=== PATIENT | male | born 1960 | race African-American/Black ===

== ENCOUNTER 2018-07-01 03:03 | Inpatient (IN) | payer MEDICARE ==
[2018-07-01] MEDS ORDERED: Ketorolac Tromethamine 30 MG/ML VIAL ONE (04:43)
[2018-07-01 05:22] LABS: Hemoglobin 15.8 g/dL (14.0-18.0); Mean Corpuscular HGB CONC 33.6 g/dL (32.0-36.0); Mean Corpuscular Hemoglobin 30.1 pg (27.0-31.0); Mean Corpuscular Volume 89.4 fL (78.0-98.0); Mean Platelet Volume 7.9 fL (7.4-10.4); Platelet Count 89 thou/uL (130-400); RBC Distribution Width 13.3 % (11.5-14.5); Red Blood Cell (RBC) Count 5.24 mill/uL (4.70-6.10); White Blood Cell (WBC) Count 6.2 thou/uL (4.8-10.8)
[2018-07-01 05:29] LABS: ALT (SGPT) 7 U/L (8-55); AST (SGOT) 11 U/L (5-34); Albumin 3.2 g/dL (3.5-5.0); Alkaline Phosphatase 72 U/L (40-150); Anion Gap 9 mmol/L (10-20); BUN (Urea Nitrogen) 14 mg/dL (8.4-25.7); Bilirubin, Total 0.6 mg/dL (0.2-1.2); Calc. Creatinine Clearance 0 mL/min (70-130); Calcium 8.6 mg/dL (7.8-10.44); Carbon Dioxide 28 mmol/L (22-29); Chloride 108 mmol/L (98-107); Estimated GFR-MDRD 71; Globulin 1.6 g/dL (2.4-3.5); Glucose 94 mg/dL (70-105); Potassium 3.8 mmol/L (3.5-5.1); Protein, Total 4.8 g/dL (6.0-8.3); Sodium 141 mmol/L (136-145)
[2018-07-01] MEDS ORDERED: Enoxaparin Sodium 80 MG/0.8 ML SYRINGE ONE (05:43)
[2018-07-01 05:46] LABS: Lymphocytes 28 % (21-51); MDiff Complete? YES; Monocytes 9 % (0-10); Neutrophil 63 % (42-75); PLT Morphology Comment Appears Decreased; RBC Morphology Normal
--- NOTE | 2018-07-01 06:19 | PDOC.FPRHP ---
- History of Present Illness Chief Complaint: Right leg pain History of Present Illness: 58 yo M with PMH of DVT here for right leg pain, rated 7/10 for the last 3 days , worsening. Pt said pain was similar to when he had a DVT in 2016. At that time , he was placed on xarelto and took it for 9 months. Associated symptoms now are chest pain, pleuritic chest pain, productive cough. In the ED, U/s showed near occlusive right popliteal vein and proximal mid- posterior tibial vein. CTA showed PE in RLL and pulmonary artery extending into multiple segmental branches with probable segmental/subsegmental PE in LLL and RML. He received lovenox and toradol. - History PMHx: DVT in 2016, asthma, possible COPD PSHx: eye surgery, carpal tunnel (left), scope left knee FHx: blood clots in mom and niece, HTN in sister, DM in sister, denied cancer or heart problems Social: 45 pack year smoking hx, alcohol abuse (drinks as much as he can afford , example drank 6 pack at a time, then goes 1-2 wks til he can get more); admits to marijuana and smoking crack cocaine. Currently homeless, had falling out with . Wishes to go to rehab and "get my life straightened up." New granddaughter born last week. - Review of Systems General: denies: fever/chills Eyes: denies: eye pain, vision changes ENT: denies: nasal congestion, rhinorrhea Respiratory: reports: cough. denies: congestion, shortness of breath Cardiovascular: reports: chest pain. denies: palpitation Gastrointestinal: reports: diarrhea. denies: nausea, vomiting, constipation, abdominal pain, GI bleeding Genitourinary: denies: dysuria, discharge Skin: denies: rashes Musculoskeletal: reports: pain Neurological: reports: numbness (on right calf) - Vital signs BP 120/76, P 78, R 18, T 98.6 - Physical Exam Constitutional: NAD, awake, alert and oriented HEENT: normocephalic and atraumatic, PERRLA (pupils pinpoint but reactive), MMM Neck: supple, other (LAD+) Heart: RRR, normal S1/S2, no murmurs/rubs/gallops, pulses present, no edema Lungs: CTAB, no respiratory distress, good air movement, no rales/rhonchi Abdomen: soft, non-tender, bowel sounds present, no masses/distention Musculoskeletal: normal structure, normal tone, ROM grossly normal Neurological: CN II-XII intact Skin: good turgor, capillary refill <2 seconds Psychiatric: normal mood and affect, good judgment and insight, intact recent and remote memory FMR H&P: Results - Labs Result Diagrams: 07/01/18 05:04 07/01/18 05:04 Lab results: WBC 6.2 thou/uL (4.8-10.8) 07/01/18 05:04 Hgb 15.8 g/dL (14.0-18.0) 07/01/18 05:04 Hct 46.9 % (42.0-52.0) 07/01/18 05:04 MCV 89.4 fL (78.0-98.0) 07/01/18 05:04 Plt Count 89 thou/uL (130-400) L 07/01/18 05:04 Sodium 141 mmol/L (136-145) 07/01/18 05:04 Potassium 3.8 mmol/L (3.5-5.1) 07/01/18 05:04 Chloride 108 mmol/L (98-107) H 07/01/18 05:04 Carbon Dioxide 28 mmol/L (22-29) 07/01/18 05:04 BUN 14 mg/dL (8.4-25.7) 07/01/18 05:04 Creatinine 1.26 mg/dL (0.6-1.3) 07/01/18 05:04 Glucose 94 mg/dL (70-105) 07/01/18 05:04 Calcium 8.6 mg/dL (7.8-10.44) 07/01/18 05:04 Total Bilirubin 0.6 mg/dL (0.2-1.2) 07/01/18 05:04 AST 11 U/L (5-34) 07/01/18 05:04 ALT 7 U/L (8-55) L 07/01/18 05:04 Alkaline Phosphatase 72 U/L (40-150) 07/01/18 05:04 Serum Total Protein 4.8 g/dL (6.0-8.3) L 07/01/18 05:04 Albumin 3.2 g/dL (3.5-5.0) L 07/01/18 05:04 FMR H&P: A/P - Problem List (1) Pulmonary embolism Current Visit: Yes Status: Acute Code(s): I26.99 - OTHER PULMONARY EMBOLISM WITHOUT ACUTE COR PULMONALE (2) DVT (deep venous thrombosis) Current Visit: Yes Status: Acute Code(s): I82.409 - ACUTE EMBOLISM AND THOMBOS UNSP DEEP VN UNSP LOWER EXTREMITY (3) Drug abuse and dependence Current Visit: Yes Status: Acute Code(s): F19.20 - OTHER PSYCHOACTIVE SUBSTANCE DEPENDENCE, UNCOMPLICATED (4) Cocaine abuse Current Visit: Yes Status: Acute Code(s): F14.10 - COCAINE ABUSE, UNCOMPLICATED (5) Marijuana abuse Current Visit: Yes Status: Acute Code(s): F12.10 - CANNABIS ABUSE, UNCOMPLICATED (6) Tobacco abuse Current Visit: Yes Status: Acute Code(s): Z72.0 - TOBACCO USE (7) Homeless Current Visit: Yes Status: Acute Code(s): Z59.0 - HOMELESSNESS - Plan 58 yo AAF with PMH of DVT with PE and DVT. PE/DVT -VSS -US: near occlusive rt popliteal vein and proximal mid-posterior tibial vein -CTA: PE in RLL pulmonary artery extending into multiple segmental branches with probable segmental/subsegmental PE in LLL and RML -EKG and Cardiac enzymes ordered -Received lovenox in ER -Start on xarelto, admit to tele obs -Pain control: tramadol and tylenol -Thrombotic panel Drug abuse -Pt admits to alcohol, tobacco, marijuana and cocaine abuse -Consult case management for rehab (pt is interested in "getting life back together") -RPR, Hep C, Hep B, and HIV pending -Nicotine patches -UDS Homeless -Case management consult Code status: Full Code Lubna Parker, PGY-1 FMR H&P: Upper Level - Pertinent history 58M with 3 day of leg swelling. At ER, found to have DVT by doppler in right leg. Follow up CTA found PE. He is symptomatic with SOB, chest pain, leg pain. Vitals were found to be stable and patient is on room air without hypoxia. He has history of provoked DVT after knee surgery. He took xarelto for 9 months , afterwhcih DVT resolved. No studies were done at that time due to DVT being provoked. - Pertinent findings Pertinent PE Ext: Right leg with tenderness on palpation, mild swelling. - Plan Date/Time: 07/01/18617 I, [Dung Resendez], have evaluated this patient and agree with findings/plan as outlined by physician general internal medicine resident. Pertinent changes/additions are listed here. 1. PE: Patient has insurance. Start on Xarelto. Consult CM for xarelto financial assistance. Patient stable at this time with PE, no sign of decompensation at this time. 2. DVT: Unprovoked in a patient who is ambulatory. Coag studies today. 3. Tobacco and drug abuse: Education provided to patient. CM consult for community resource. Attending Addendum - Attending Addendum Date/Time: 07/01/18629 I personally evaluated the patient and discussed the management with Dr. Parker/ Dipti. I agree with the History, Examination, Assessment and Plan documented above with any addition or exceptions noted below. Patient with history of LLE DVT presenting with 3-4 days of R calf and posterior knee pain that has been progressive. Denies any recent injury to the region. Reports no redness or swelling to the area. Was on Xarelto for 6 months for previous DVT. Denies fevers, chills, weight loss, night sweats. He reports some mild substernal chest pain with no radiation when taking a deep breath, but denies shortness of breath or palpitations. On exam, overall normal. Vitals stable, BP normal and non hypoxic on room air. RRR, CTAB. Extremity exam shows 1 + pitting edema chronic of LLE, moderate TTP RLE, no palpable cord noted. Equal pulses. Prelim imaging report shows RLE popliteal occlusive thrombus, and CTA shows scattered PE, though imaging was suboptimal. Patient will be admitted to telemetry for: 1. Acute PE without instability- patient has been given Lovenox and will start on Xarelto and consult CM. Will discuss images with radiology to see if clot burden is as severe as on initial report. If so, will need Echo and workup for pro-thrombotic disease. Continue tele monitoring. 2. Hx DVT- thrombotic panel to see if he has more of a provoked clot. 3. Drug abuse- UDS and CM for possible counselling and outpatient rehab services.
[2018-07-01] MEDS ORDERED: Acetaminophen 500 MG TAB PO PRN (08:51)
[2018-07-01] MEDS ORDERED: Ondansetron HCl/PF 4 MG/2 ML Vial IVP PRN (08:51)
[2018-07-01] MEDS ORDERED: Acetaminophen 325 MG TAB PO PRN (08:52)
[2018-07-01] MEDS ORDERED: Ondansetron ODT 4 MG TAB PO PRN (08:52)
[2018-07-01 08:56] VITALS: BMI 25.6
--- NOTE | 2018-07-01 08:57 | ULT ---
PRELIMINARY REPORT/[facility]/EMERGENTY AFTER-HOURS PROCEDURE US Duplex Right Lower Extremity Veins EXAM DATE/TIME: Exam ordered 07/01/2018 4:07 AM CLINICAL HISTORY: 58 years old, male; Pain; Leg, lower; Right; Patient HX: Rle pain x 3 days. ; Additional info: HX: Ll e dvt TECHNIQUE: Real-time duplex ultrasound scan of the right lower extremity veins integrating B-mode two dimensiona l vascular structure, Doppler spectral analysis, color flow Doppler imaging and compression. COMPARISON: No relevant prior studies available. FINDINGS: Deep veins: Near occlusive thrombosis of the right popliteal vein and proximal-mid posterior tibial v ein. Remaining deep veins of the right lower extremity are patent. Superficial veins: No thrombus in the visualized great saphenous vein. Soft tissues: No acute findings. No popliteal cyst. IMPRESSION: Near occlusive thrombosis of the right popliteal vein and proximal-mid posterior tibial vein. Thank you for allowing us to participate in the care of your patient. Dictated and Authenticated by: Go Torres MD 07/01/2018 4:42 AM Central Time ([place] & [place]) FINAL REPORT VENOUS DOPPLER ULTRASOUND OF THE RIGHT LOWER EXTREMITY: Date: 07/01/18 FINDINGS/IMPRESSION: I agree with the preliminary report given by Lorraine. POS: [facility]
--- NOTE | 2018-07-01 09:02 | CT ---
PRELIMINARY REPORT/[facility]/EMERGENTY AFTER-HOURS PROCEDURE Addendum created by Go Torres MD on 07/01/2018 5:29 AM Central Time ([place] & [place]) Findings discussed with JEET ROBNI MD at time of interpretation. Initial Report created on 07/01/2018 5:20 AM Central Time ([place] & [place]) CT Angiography Chest With Intravenous Contrast EXAM DATE/TIME: 07/01/2018 4:50 AM CLINICAL HISTORY: 58 years old, male; Signs and symptoms; Shortness of breath; Patient HX: Eval for possible pe; PT C/O SOB; M58 presents with burning r leg pain x3 days. PT reports HX of dvts in l leg. PT reports he has been off of blood thinners "for a while". PT denies any known injury; Additional info: HX: Lle dvt TECHNIQUE: Axial computed tomographic angiography images of the chest with intravenous contrast using CT angiogr aphy protocol. MIP reconstructed images were created and reviewed. COMPARISON: No relevant prior studies available. FINDINGS: Pulmonary arteries: Study limited by flow artifact and suboptimal contrast bolus; however, there is p ulmonary embolus in the right lower lobe pulmonary artery extending into multiple segmental branches with probable segmental/subsegmental PE in the left lower lobe and right middle lobe as well. Aorta: Normal. No aortic aneurysm. No aortic dissection. Lungs: Normal. No consolidation. No masses. Pleural space: Normal. No pneumothorax. No pleural effusion. Heart: Normal. No cardiomegaly. No pericardial effusion. No evidence of right heart strain. Mediastinum: Esophagus is unremarkable. Bones/joints: Unremarkable. No acute fracture. Soft tissues: Gynecomastia. Lymph nodes: Unremarkable. No enlarged lymph nodes. IMPRESSION: Study limited by flow artifact and suboptimal contrast bolus; however, there is pulmonary embolus in the right lower lobe pulmonary artery extending into multiple segmental branches with probable segmen brayan/subsegmental PE in the left lower lobe and right middle lobe as well. Thank you for allowing us to participate in the care of your patient. Dictated and Authenticated by: Go Torres MD 07/01/2018 5:20 AM Central Time ([place] & [place]) FINAL REPORT EMERGENCY AFTER HOURS CT ANGIOGRAM THORAX WITH IV CONTRAST AND 3D RECONSTRUCTIONS: Date: 07/01/18 HISTORY: Burning right lower extremity pain for 3 days. History of deep venous thrombosis in left leg. IMPRESSION: 1. Extensive pulmonary emboli with multiple pulmonary emboli seen throughout the bilateral lower lob e segmental and subsegmental pulmonary arteries, much greater in the right lower lobe. However, there are also filling defects related to pulmonary emboli involving segmental and subsegmental right uppe r lobe and right middle lobe pulmonary arteries. 2. Vascular calcifications in the coronary arteries and thoracic aorta. Thoracic aorta is normal in caliber without evidence of an aortic dissection. 3. No pleural effusion is present. There is minimal dependent bibasilar atelectasis. Findings are in agreement with the preliminary report by Lorraine. POS: [facility]
[2018-07-01] MEDS: Nicotine 21 MG PATCH TD SCH (10:18)
[2018-07-01] MEDS: Rivaroxaban 15 MG TAB PO SCH ×2 (10:18→20:41)
[2018-07-01 10:35] LABS: CKMB 1.3 ng/mL (0-6.6); Troponin I Less than 0.010 ng/mL (< 0.028)
[2018-07-01 10:44] LABS: INR-International Normal Ratio 1.1; PTT 38.8 SEC (22.9-36.1); Prothrombin Time 14.3 SEC (12.0-14.7)
[2018-07-01 10:49] LABS: Syphilis Antibody Nonreactive (Nonreactive); Syphilis Antibody Index 0.03 S/CO (<1.00 Non-Reactive)
[2018-07-01 10:50] LABS: HBSAB Concentration 0.19 mIU/mL; HBSAg Index 0.17 S/CO (0-0.99); HIV (1/2) Antibody/Antigen Non-Reactive (NonReactive); HIV 1/2 INDEX 0.18 S/CO (<1.00); Hep B Surf AB Non-Reactive (NonReactive); Hep B Surf Ag Non-Reactive S/CO (NonReactive); Hep C IgG Ab Non-Reactive (NonReactive); Hep C Index 0.08 S/CO (0-0.79)
[2018-07-01 10:52] LABS: D-Dimer Test 4.31 *mcg/mL (0.27-0.43)
[2018-07-01 13:12] LABS: HEX PHOS LA Tube 1 69.2 SEC; HEX PHOS LA Tube 2 65.3 SEC; Hexagonal Phospholipid Neut 3.9 SEC (0-8.0)
[2018-07-01] MEDS ORDERED: ISOVUE-370 76%-LOCM 1 ML ONE (14:44)
[2018-07-01] MEDS: traMADol HCl 50 MG TAB PO PRN ×2 (15:06→21:10)
[2018-07-02 04:58] LABS: #Eosinphils 0.1 thou/uL (0.0-0.7); #Lymphocytes 1.7 thou/uL (1.20-3.40); #Monocytes 0.5 thou/uL (0.11-0.59); #Neutrophils 1.4 thou/uL (1.40-6.50); %Basophils 0.8 % (0.0-1.0); %Eosinophils 1.7 % (0.0-10.0); %Lymphocytes 46.5 % (21.0-51.0); %Monocytes 13.8 % (0.0-10.0); %Neutrophils 37.1 % (42.0-75.0); Mean Corpuscular HGB CONC 33.4 g/dL (32.0-36.0); Mean Corpuscular Hemoglobin 30.3 pg (27.0-31.0); Mean Corpuscular Volume 90.6 fL (78.0-98.0); Mean Platelet Volume 7.8 fL (7.4-10.4); Platelet Count 84 thou/uL (130-400); RBC Distribution Width 13.4 % (11.5-14.5); Red Blood Cell (RBC) Count 4.94 mill/uL (4.70-6.10); White Blood Cell (WBC) Count 3.7 thou/uL (4.8-10.8)
[2018-07-02 05:24] LABS: Anion Gap 7 mmol/L (10-20); BUN (Urea Nitrogen) 13 mg/dL (8.4-25.7); Calc. Creatinine Clearance 119 mL/min (70-130); Calcium 8.1 mg/dL (7.8-10.44); Carbon Dioxide 27 mmol/L (22-29); Chloride 108 mmol/L (98-107); Estimated GFR-MDRD Greater than 90; Glucose 91 mg/dL (70-105); Sodium 138 mmol/L (136-145)
[2018-07-02 06:08] LABS: Amphetamine Not Detected (NotDetected); Barbiturates Screen Not Detected (NotDetected); Benzodiazepine Screen Not Detected (NotDetected); Cocaine Metabolite Screen Detected (NotDetected); Medtox Control Line Valid? VALID (VALID); Medtox Reader # READER 4; Methadone Not Detected (NotDetected); Methamphetamine Not Detected (NotDetected); Opiate Screen Not Detected (NotDetected); Oxycodone Screen Not Detected (NotDetected); Phencyclidine (PCP) Not Detected (NotDetected); THC/Cannabinoid Screen Detected (NotDetected); Tricyclic Screen Not Detected (NotDetected)
--- NOTE | 2018-07-02 06:11 | PDOC.FM ---
- Subjective Subjective: No acute events overnight. Endorses mild pain 4-5/10 in RLE but improved from yesterday and with tramadol. - Objective Vital Signs & Weight: Vital Signs (12 hours) Temp Pulse Resp BP Pulse Ox 07/01/18 20:38 98.1 F 94 16 128/80 97 Weight Weight 88.11 kg I&O: 06/30/18 07/01/18 07/02/18 06:59 06:59 06:59 Intake Total 1140 Balance 1140 Result Diagrams: 07/02/18 04:32 07/02/18 04:32 <Claudia Rudolph - Last Filed: 07/02/18 14:28> - Objective Vital Signs & Weight: Vital Signs (12 hours) Temp Pulse Resp BP Pulse Ox 07/03/18 07:40 98.1 F 58 L 16 155/89 H 98 07/03/18 04:00 98.4 F 54 L 15 134/75 97 Weight Weight 91.58 kg I&O: 07/02/18 07/03/18 07/04/18 06:59 06:59 06:59 Intake Total 2040 1557 Output Total 275 950 Balance 1765 607 Result Diagrams: 07/03/18 04:40 07/03/18 04:40 <Montez Charlton - Last Filed: 07/03/18 12:35> Phys Exam - Physical Examination Constitutional: NAD Respiratory: no wheezing, no rales, no rhonchi, clear to auscultation bilateral Gastrointestinal: soft, non-tender Psychiatric: A&O x 3 Deviation from normal: RLE: no palpable cord, no erythema, no edema, mild tenderness to palpation -: pedal pulses present <Claudia Rudolph - Last Filed: 07/02/18 14:28> Dx/Plan (1) Cocaine abuse Code(s): F14.10 - COCAINE ABUSE, UNCOMPLICATED Status: Acute (2) DVT (deep venous thrombosis) Code(s): I82.409 - ACUTE EMBOLISM AND THOMBOS UNSP DEEP VN UNSP LOWER EXTREMITY Status: Acute (3) Drug abuse and dependence Code(s): F19.20 - OTHER PSYCHOACTIVE SUBSTANCE DEPENDENCE, UNCOMPLICATED Status: Acute (4) Homeless Code(s): Z59.0 - HOMELESSNESS Status: Acute (5) Marijuana abuse Code(s): F12.10 - CANNABIS ABUSE, UNCOMPLICATED Status: Acute (6) Pulmonary embolism Code(s): I26.99 - OTHER PULMONARY EMBOLISM WITHOUT ACUTE COR PULMONALE Status : Acute (7) Tobacco abuse Code(s): Z72.0 - TOBACCO USE Status: Acute - Plan Plan: 58 yo M with h/o of L provoked DVT (2/2 to knee surgery) with R unprovoked DVT 1. Unprovoked DVT of RLE -Currently stable, pain improved with Toradol -On Xarelto for anticoagulation -Per sister, patient's insurance covers his Xarelto, plan to continue anticoagulation for the next 6 months -Able to ambulate 2. PE -Currently vitally stable, saturation above 92% on room air 3. Drug abuse: -Hep B, HCV, HiV, Sphilis panels all negative -Per prior note, desires to "get more help" so have consulted case management for further mgmt on this 4. Tobacco abuse: -Currently on nicotine patch -Plan to discuss cessation with patient if interested 5. Thrombocytopenia, likely 2/2 Xarelto -No prior visits to confirm baseline -Patient with no active bleeding, purpura-[facility] Dispo: Medically stable, will be discharged tomorrow since sister lives out of town. She will pick him up tomorrow. Discussed with Dr. Charlton who agrees with above plan <Claudia Rudolph - Last Filed: 07/02/18 14:28> Attending Addendum - Attending Addendum Date/Time: 07/03/18 1234 I personally evaluated the patient and discussed the management with Dr. Rudolph yesterday on 07/02/18. I agree with the History, Examination, Assessment and Plan documented above with any addition or exceptions noted below. <Montez Charlton - Last Filed: 07/03/18 12:35>
[2018-07-02] MEDS: Rivaroxaban 15 MG TAB PO SCH ×2 (10:04→20:47)
[2018-07-02] MEDS: Nicotine 21 MG PATCH TD SCH (10:05)
[2018-07-02] MEDS: traMADol HCl 50 MG TAB PO PRN ×2 (10:07→16:08)
--- NOTE | 2018-07-02 14:33 | PDOC.EVN ---
Event Note - Event Note Event Note: Patient's sister (Ms. Pinto) called expression concern for quick turn around time for discharge and frustration with miscommunication. She stated she wants to be notified first and to be contacted for all changes. It was previously communicated to her patient would be discharged Wednesday and so after she was notified he could be discharged today she was upset since she lives 3 hours away and would not be able to come in time. After 3 separate phone conversations between her, myself and Dr. Charlton, we apologized for the miscommunication and decided that we would keep patient until tomorrow (07/03) and sister would be picking him up. Questions and concerns were invited, discussed and addressed.
[2018-07-02 16:20] LABS: EliA APS New Method **** NEW METHOD ****
[2018-07-03 05:13] LABS: #Eosinphils 0.1 thou/uL (0.0-0.7); #Lymphocytes 1.7 thou/uL (1.20-3.40); #Monocytes 0.6 thou/uL (0.11-0.59); #Neutrophils 1.8 thou/uL (1.40-6.50); %Basophils 1.1 % (0.0-1.0); %Lymphocytes 39.7 % (21.0-51.0); %Monocytes 14.3 % (0.0-10.0); Hemoglobin 15.3 g/dL (14.0-18.0); Mean Corpuscular HGB CONC 33.8 g/dL (32.0-36.0); Mean Corpuscular Hemoglobin 30.3 pg (27.0-31.0); Mean Corpuscular Volume 89.8 fL (78.0-98.0); Platelet Count 96 thou/uL (130-400); RBC Distribution Width 13.3 % (11.5-14.5); Red Blood Cell (RBC) Count 5.03 mill/uL (4.70-6.10); White Blood Cell (WBC) Count 4.3 thou/uL (4.8-10.8)
[2018-07-03 05:21] LABS: Anion Gap 11 mmol/L (10-20); BUN (Urea Nitrogen) 8 mg/dL (8.4-25.7); Calc. Creatinine Clearance 136 mL/min (70-130); Calcium 8.4 mg/dL (7.8-10.44); Carbon Dioxide 25 mmol/L (22-29); Chloride 107 mmol/L (98-107); Estimated GFR-MDRD Greater than 90; Glucose 84 mg/dL (70-105); Sodium 139 mmol/L (136-145)
--- NOTE | 2018-07-03 05:49 | PDOC.FM ---
- Subjective Subjective: No acute events overnight. Still reports mild pain in RLE worse with walking but improved from yesterday. - Objective MAR Reviewed: Yes Vital Signs & Weight: Vital Signs (12 hours) Temp Pulse Resp BP Pulse Ox 07/02/18 20:00 98.3 F 68 15 142/89 H 97 Weight Weight 89.358 kg I&O: 07/01/18 07/02/18 07/03/18 06:59 06:59 06:59 Intake Total 2040 1197 Output Total 275 450 Balance 1765 747 Result Diagrams: 07/03/18 04:40 07/03/18 04:40 <Claudia Rudolph - Last Filed: 07/03/18 20:54> - Objective Vital Signs & Weight: Weight Weight 91.58 kg I&O: 07/03/18 07/04/18 07/05/18 06:59 06:59 06:59 Intake Total 1557 Output Total 950 Balance 607 Result Diagrams: 07/03/18 04:40 07/03/18 04:40 <Montez Charlton - Last Filed: 07/04/18 14:07> Phys Exam - Physical Examination Constitutional: NAD Respiratory: no wheezing, no rales, no rhonchi, clear to auscultation bilateral Cardiovascular: RRR, no significant murmur -: RLE: no swelling, no erythema, mildly tender to palpation <Claudia Rudolph - Last Filed: 07/03/18 20:54> Dx/Plan (1) Cocaine abuse Code(s): F14.10 - COCAINE ABUSE, UNCOMPLICATED Status: Acute (2) DVT (deep venous thrombosis) Code(s): I82.409 - ACUTE EMBOLISM AND THOMBOS UNSP DEEP VN UNSP LOWER EXTREMITY Status: Acute (3) Drug abuse and dependence Code(s): F19.20 - OTHER PSYCHOACTIVE SUBSTANCE DEPENDENCE, UNCOMPLICATED Status: Acute (4) Homeless Code(s): Z59.0 - HOMELESSNESS Status: Acute (5) Marijuana abuse Code(s): F12.10 - CANNABIS ABUSE, UNCOMPLICATED Status: Acute (6) Pulmonary embolism Code(s): I26.99 - OTHER PULMONARY EMBOLISM WITHOUT ACUTE COR PULMONALE Status : Acute (7) Tobacco abuse Code(s): Z72.0 - TOBACCO USE Status: Acute - Plan Plan: 58 yo M with h/o of L provoked DVT (2/2 to knee surgery) with R unprovoked DVT 1. Unprovoked DVT of RLE -Currently stable, pain improved with Toradol -On Xarelto for anticoagulation -Able to ambulate -Coag panel pending, outpt. colonoscopy -IgG cardiolipin + 2. PE -Currently vitally stable, non-hypoxic on room air 3. Thrombocytopenia, likely 2/2 Xarelto -Stable, continue anticoagulation since platelets >40 K and hemodynamically stable -Pt. reported episode of BRBPR when wiping. He reports having had a colonoscopy where they removed polyps. Will recommend outpatient colonoscopy. 4. PVD rule out -History of smoking, RLE pain with walking -Performed SHIV with and without doppler. Values were 1.1 and 0.9 respectively; both within normal range -No need to start medicationn Dispo: Medically stable, will be picked up by sister today, notified and discussed with her outpatient follow up and plan. Discussed with Dr. Charlton who agrees with above plan <Claudia Rudolph - Last Filed: 07/03/18 20:54> Attending Addendum - Attending Addendum Date/Time: 07/04/18 4934 I personally evaluated the patient and discussed the management with Dr. Rudolph. I agree with the History, Examination, Assessment and Plan documented above with any addition or exceptions noted below. <Montez Charlton - Last Filed: 07/04/18 14:07>
[2018-07-03] MEDS: Nicotine 21 MG PATCH TD SCH (08:58)
[2018-07-03] MEDS: Rivaroxaban 15 MG TAB PO SCH (08:58)
[2018-07-03 19:33] VITALS: BP 179/102; TEMP 97.6
[2018-07-04 10:03] LABS: Factor VIII Test 151.4 % ACTIVE (56-157)
== END 2018-07-03 17:19 | disposition home or self-care (01) | DRG 299 ==
LOC: ERS 03:03 → 2NO 05:38
PROVIDERS: ADMIT Student in an Organized Health Care Education/Training Program; ATTEND Student in an Organized Health Care Education/Training Program
DX: I82.431 Acute embolism and thrombosis of right popliteal vein (principal); I26.99 Other pulmonary embolism without acute cor pulmonale; I82.441 Acute embolism and thrombosis of right tibial vein; J45.909 Unspecified asthma, uncomplicated; Z59.0 Homelessness; F14.10 Cocaine abuse, uncomplicated; F12.10 Cannabis abuse, uncomplicated; F17.210 Nicotine dependence, cigarettes, uncomplicated; D69.59 Other secondary thrombocytopenia; T45.515A Adverse effect of anticoagulants, initial encounter; Z86.718 Personal history of other venous thrombosis and embolism; Z83.3 Family history of diabetes mellitus; Z82.49 Family history of ischemic heart disease and other diseases of the circulatory system
CPT/HCPCS: 36415; 71275; 80048; 80053; 80306; 81240; 81241; 82553; 83090; 84484; 85025; 85240; 85300; 85303; 85305; 85307; 85379; 85598; 85610; 85730; 86147; 86706; 86780; 86803; 87340; 87389; 93005; 93010; 96372; 96374; A4216; G8978-GP-CI; G8979-GP-CI; G8980-GP-CI; G8987-GO-CI; G8988-GO-CI; G8989-GO-CI; J1650; J1885